=== PATIENT | male | born 1950 | race African-American/Black ===

== ENCOUNTER 2016-09-06 16:49 | Emergency (ER) | payer MEDICARE ==
[~2016-09-06] VITALS: Ht 180.3 cm; Wt 83.9 kg
[~2016-09-06 16:49] MED LIST: AMLO5TAB2 PO; ASPI-498 PO; CLON0.1T PO; DOCU250C3 PO; FLUO-125 PO; OMEP20TA44 PO; SENN8.6T15 PO; TAM04C PO; TOLN1POW EX
[2016-09-06 18:43] LABS: Basophils # (auto) 0 uL; Basophils % (auto) 0.6 % (0.0-2.0); Eosinophils # (auto) 0.1 uL; Eosinophils % (auto) 2.2 % (0.0-7.0); Hematocrit 49.9 % (41.0-53.0); Hemoglobin 16.7 g/dL (13.5-17.5); Lymphocytes % (auto) 33.9 % (10.0-50.0); Mean Corpuscular Hemoglobin 29.8 pg (28.0-32.0); Mean Corpuscular Hgb Conc. 33.5 g/dL (32.0-36.0); Mean Platelet Volume 11.4 fL (7.4-10.4); Monocytes # (auto) 0.5 uL; Monocytes % (auto) 7.6 % (0.0-12.0); Neutrophils # (auto) 3.3 uL; Neutrophils % (auto) 55.7 % (37.0-80.0); Platelet Count (auto) 233 10^3/uL (140-450); Red Cell Distribution Width 12.5 % (11.6-16.0); SUSPECT VIEW TRANSMISSION; White Blood Cell 5.9 10^3/uL (4.4-10.8)
[2016-09-06 19:41] LABS: Albumin 3.9 g/dL (3.4-5.0); BUN/Creatinine Ratio 9.8; Bilirubin, Total 0.5 mg/dL (0.2-1.0); Calcium 9.1 mg/dL (8.5-10.1); Potassium 3.9 mmol/L (3.5-5.1); Total Protein 8.1 g/dL (6.4-8.2)
[2016-09-06 20:37] LABS: Platelet Estimate Adequate; RBC Morphology Normal
[2016-09-06 20:38] LABS: Giant Platelets Few
[2016-09-07] MEDS ORDERED: diphenhdrAMINE HCL 50 MG/1 ML VL IV ONE (03:00)
[2016-09-07] MEDS ORDERED: SODIUM CHLORIDE 0.9% 1,000 ML IV SCH (03:00)
[2016-09-07 03:16] LABS: Basophils # (auto) 0.1 uL; Basophils % (auto) 1.1 % (0.0-2.0); Eosinophils # (auto) 0.1 uL; Eosinophils % (auto) 1.4 % (0.0-7.0); Hematocrit 50.9 % (41.0-53.0); Hemoglobin 16.6 g/dL (13.5-17.5); Lymphocytes # (auto) 1.9 uL; Lymphocytes % (auto) 26.6 % (10.0-50.0); Mean Corpuscular Hemoglobin 29.1 pg (28.0-32.0); Mean Corpuscular Hgb Conc. 32.6 g/dL (32.0-36.0); Mean Corpuscular Volume 89.1 fL (80.0-100.0); Mean Platelet Volume 10.9 fL (7.4-10.4); Monocytes # (auto) 0.6 uL; Monocytes % (auto) 7.8 % (0.0-12.0); Neutrophils # (auto) 4.5 uL; Neutrophils % (auto) 63.1 % (37.0-80.0); Platelet Count (auto) 231 10^3/uL (140-450); Red Cell Distribution Width 12.7 % (11.6-16.0); White Blood Cell 7.2 10^3/uL (4.4-10.8)
[2016-09-07 03:32] LABS: INR 1.01 (0.9-1.15); Partial Thromboplastin Time 31.3 sec (22.64-33.71); Prothrombin Time 10.9 sec (9.37-12.3)
[2016-09-07 03:51] LABS: Alkaline Phosphatase 78 U/L (45-117); Anion Gap 9 (5-15); Aspartate Aminotransferase 11 U/L (15-37); BUN/Creatinine Ratio 10.4; Bilirubin, Total 0.7 mg/dL (0.2-1.0); Blood Urea Nitrogen 17 mg/dL (7-18); Calcium 9.1 mg/dL (8.5-10.1); Carbon Dioxide 30 mmol/L (21-32); Chloride 104 mmol/L (98-107); GFR African American 54 mL/min; GFR Non-African American 45 mL/min; Glucose 170 mg/dL (74-106); Potassium 3.8 mmol/L (3.5-5.1); Sodium 143 mmol/L (136-145); Total Protein 8.2 g/dL (6.4-8.2)
[2016-09-07] MEDS ORDERED: LIDOCAINE 2% JELLY UROJET 10 ML TOP ONE (05:37)
[2016-09-07] MEDS ORDERED: LIDOCAINE 2% JELLY 11ml (GLYDO) UR ONE (06:15)
[2016-09-07] MEDS ORDERED: HYDROcodone-ACET 5/325MG TAB PO ONE (06:30)
[2016-09-07 06:44] VITALS: BP 151/99
[2016-09-07 06:54] LABS: Urine Bilirubin Negative (Negative); Urine Blood TRACE /uL (Negative); Urine Color Yellow (Yellow); Urine Glucose Normal (Normal); Urine Ketone Negative (Negative); Urine Nitrite Negative (Negative); Urine RBC 6 /hpf (0 - 3); Urine Squamous Epithelial Cell FEW /hpf (<5); Urine Urobilinogen Normal (Negative)
== END 2016-09-07 06:50 | disposition home or self-care (01) ==
LOC: ER 16:56
DX: N40.0 Benign prostatic hyperplasia without lower urinary tract symptoms (principal); N39.0 Urinary tract infection, site not specified; K56.41 Fecal impaction; F17.210 Nicotine dependence, cigarettes, uncomplicated; I48.91 Unspecified atrial fibrillation; I25.10 Atherosclerotic heart disease of native coronary artery without angina pectoris; E11.22 Type 2 diabetes mellitus with diabetic chronic kidney disease; I12.9 Hypertensive chronic kidney disease with stage 1 through stage 4 chronic kidney disease, or unspecified chronic kidney disease; N18.3 Chronic kidney disease, stage 3 (moderate); Z79.82 Long term (current) use of aspirin; Z79.899 Other long term (current) drug therapy
CPT/HCPCS: 36415; 51702; 74176; 80053; 81001; 84484; 85025; 85610; 85730; 96361; 96374; 99285; J1200; J7030

== ENCOUNTER 2016-09-07 17:35 | Observation (INO) | payer MEDICARE ==
[~2016-09-07] VITALS: Ht 180.3 cm; Wt 83.9 kg
[2016-09-08] MEDS ORDERED: HYDROmorphone HCL 2 MG/ML VL IM ONE (01:15)
[2016-09-08] MEDS ORDERED: ONDANSETRON HCL 4 MG/2 ML VIAL IM ONE (01:15)
[2016-09-08 01:26] VITALS: BP 145/68
== END 2016-09-08 02:09 | disposition home or self-care (01) | DRG 700 ==
LOC: EDBD 17:35 → ER 17:44 → OVERFLOW 23:01 → ER 09-08 02:09
PROVIDERS: ADMIT Emergency Medicine; ATTEND Emergency Medicine
DX: T83.011A Breakdown (mechanical) of indwelling urethral catheter, initial encounter (principal); N40.1 Benign prostatic hyperplasia with lower urinary tract symptoms; R33.8 Other retention of urine; M54.5 Low back pain; F17.210 Nicotine dependence, cigarettes, uncomplicated; Z90.49 Acquired absence of other specified parts of digestive tract; E11.9 Type 2 diabetes mellitus without complications; I10 Essential (primary) hypertension; I25.10 Atherosclerotic heart disease of native coronary artery without angina pectoris; Z86.73 Personal history of transient ischemic attack (TIA), and cerebral infarction without residual deficits; I48.91 Unspecified atrial fibrillation; Z80.51 Family history of malignant neoplasm of kidney
CPT/HCPCS: 96372; 99285; G0378; J1170; J2405

== ENCOUNTER 2017-10-15 23:09 | Emergency (ER) | payer MEDICARE ==
[~2017-10-15] VITALS: Ht 180.3 cm; Wt 85.7 kg
[~2017-10-15 23:09] MED LIST changes: +SENN1TAB14 PO; -SENN8.6T15 PO
[2017-10-16 00:23] LABS: Basophils # (auto) 0.1 uL; Eosinophils # (auto) 0.2 uL; Eosinophils % (auto) 2.7 % (0.0-7.0); Hematocrit 48.1 % (41.0-53.0); Hemoglobin 16.2 g/dL (13.5-17.5); Lymphocytes # (auto) 2.2 uL; Lymphocytes % (auto) 36.2 % (10.0-50.0); Mean Corpuscular Hgb Conc. 33.6 g/dL (32.0-36.0); Mean Corpuscular Volume 89.2 fL (80.0-100.0); Monocytes # (auto) 0.5 uL; Monocytes % (auto) 8.9 % (0.0-12.0); Neutrophils # (auto) 3.1 uL; Neutrophils % (auto) 51.2 % (37.0-80.0); Nucleated Red Blood Cells % 0.2 %; Platelet Count (auto) 223 10^3/uL (140-450); Red Blood Cells 5.39 10^6/uL (4.5-5.90); Red Cell Distribution Width 12.9 % (11.8-14.3)
[2017-10-16 00:30] LABS: Alanine Aminotransferase 27 U/L (16-61); Albumin 3.6 g/dL (3.4-5.0); Amylase 69 U/L (25-115); Anion Gap 9 (5-15); Aspartate Aminotransferase 13 U/L (15-37); BUN/Creatinine Ratio 14.1; Blood Urea Nitrogen 22 mg/dL (7-18); Calcium 8.9 mg/dL (8.5-10.1); Carbon Dioxide 26 mmol/L (21-32); Chloride 102 mmol/L (98-107); GFR African American 58 mL/min; GFR Non-African American 48 mL/min; Glucose 142 mg/dL (74-106); Lipase 69 U/L (73-393); Magnesium 2.1 mg/dL (1.6-2.6); Potassium 3.7 mmol/L (3.5-5.1); Sodium 137 mmol/L (136-145)
[2017-10-16 00:36] LABS: Alkaline Phosphatase 76 U/L (45-117); Bilirubin, Total 0.7 mg/dL (0.2-1.0); Total Protein 7.8 g/dL (6.4-8.2)
[2017-10-16 05:01] VITALS: BP 139/96
[2017-10-16] MEDS ORDERED: DOCUSATE SOD 100 MG CAP PO ONE (08:00)
== END 2017-10-16 08:55 | disposition home or self-care (01) ==
LOC: ER 23:17
DX: K59.00 Constipation, unspecified (principal); E11.9 Type 2 diabetes mellitus without complications; F17.210 Nicotine dependence, cigarettes, uncomplicated; I10 Essential (primary) hypertension; I25.10 Atherosclerotic heart disease of native coronary artery without angina pectoris; I48.91 Unspecified atrial fibrillation; N40.0 Benign prostatic hyperplasia without lower urinary tract symptoms; Z79.82 Long term (current) use of aspirin; Z86.73 Personal history of transient ischemic attack (TIA), and cerebral infarction without residual deficits; Z90.49 Acquired absence of other specified parts of digestive tract
CPT/HCPCS: 36415; 74176; 80053; 82150; 83690; 83735; 83880; 84484; 85025; 93005

== ENCOUNTER 2019-02-20 15:37 | Emergency (ER) | payer MEDICARE ==
[~2019-02-20] VITALS: Ht 180.3 cm; Wt 83.9 kg
[~2019-02-20 15:37] MED LIST changes: +AMLO5TAB15 PO; -AMLO5TAB2 PO
[2019-02-20] MEDS ORDERED: cefTRIAXone SOD 1,000 MG VL IM ONE (17:00)
[2019-02-20 17:02] LABS: Basophils # (auto) 0.1 uL; Basophils % (auto) 0.9 % (0.0-2.0); Eosinophils # (auto) 0.1 uL; Eosinophils % (auto) 1.2 % (0.0-7.0); Hematocrit 50.3 % (41.0-53.0); Hemoglobin 16.6 g/dL (13.5-17.5); Lymphocytes # (auto) 1.8 uL; Lymphocytes % (auto) 29.1 % (10.0-50.0); Mean Corpuscular Hemoglobin 29.5 pg (28.0-32.0); Mean Corpuscular Volume 89.3 fL (80.0-100.0); Monocytes # (auto) 0.6 uL; Monocytes % (auto) 9.9 % (0.0-12.0); Neutrophils # (auto) 3.6 uL; Neutrophils % (auto) 58.9 % (37.0-80.0); Platelet Count (auto) 279 10^3/uL (140-450); Red Blood Cells 5.63 10^6/uL (4.5-5.90); White Blood Cell 6.1 10^3/uL (4.4-10.8)
[2019-02-20 17:09] LABS: BUN/Creatinine Ratio 8.1; Calcium 9.8 mg/dL (8.5-10.1)
[2019-02-20 17:12] LABS: Bilirubin, Total 1.1 mg/dL (0.2-1.0); Total Protein 8.7 g/dL (6.4-8.2)
[2019-02-20] MEDS ORDERED: LIDOCAINE 2% (LOCAL ANESTH.) PF 5ml SDV ONE (17:55)
[2019-02-20] MEDS ORDERED: LIDOCAINE 2%HCL (LOCAL ANESTH.) INJ 20ML MDV ONE (17:58)
[2019-02-20 18:05] VITALS: BP 143/76
== END 2019-02-20 18:11 | disposition home or self-care (01) ==
LOC: ER 15:37
DX: N45.1 Epididymitis (principal); E11.22 Type 2 diabetes mellitus with diabetic chronic kidney disease; I12.9 Hypertensive chronic kidney disease with stage 1 through stage 4 chronic kidney disease, or unspecified chronic kidney disease; N18.9 Chronic kidney disease, unspecified; E78.5 Hyperlipidemia, unspecified; Z90.49 Acquired absence of other specified parts of digestive tract; Z79.2 Long term (current) use of antibiotics; Z79.82 Long term (current) use of aspirin; Z79.899 Other long term (current) drug therapy
CPT/HCPCS: 36415; 76870; 80053; 85025; 96372; 99284; J0696; J2001

== ENCOUNTER 2019-10-14 15:23 | Inpatient (IN) | payer MEDICARE ==
[~2019-10-14] VITALS: Ht 180.3 cm; Wt 88.6 kg
[2019-10-14] MEDS ORDERED: SODIUM CHLORIDE 0.9% 1,000 ML IV ONE ×2 (15:27)
[2019-10-14] MEDS ORDERED: PANTOPRAZOLE 40 MG/10 ML VIAL INJ IV ONE (15:30)
[2019-10-14 16:29] LABS: Basophils # (auto) 0 10 ^3/uL (0-0.2); Basophils % (auto) 0.6 % (0.0-2.0); Eosinophils # (auto) 0.3 10 ^3/uL (0-0.8); Eosinophils % (auto) 5.2 % (0.0-7.0); Hematocrit 48.3 % (41.0-53.0); Hemoglobin 15.9 g/dL (13.5-17.5); Lymphocytes # (auto) 1.9 10 ^3/uL (0.4-5.4); Lymphocytes % (auto) 30.7 % (10.0-50.0); Mean Corpuscular Hemoglobin 29.6 pg (28.0-32.0); Mean Corpuscular Hgb Conc. 32.9 g/dL (32.0-36.0); Mean Corpuscular Volume 90.2 fL (80.0-100.0); Monocytes # (auto) 0.6 10 ^3/uL (0-1.3); Monocytes % (auto) 9.3 % (0.0-12.0); Neutrophils # (auto) 3.3 10 ^3/uL (1.6-8.6); Neutrophils % (auto) 54.2 % (37.0-80.0); Nucleated Red Blood Cells % 0.2 %; Platelet Count (auto) 223 10^3/uL (140-450); Red Blood Cells 5.35 10^6/uL (4.5-5.90); Red Cell Distribution Width 13.1 % (11.8-14.3); White Blood Cell 6.1 10^3/uL (4.4-10.8)
[2019-10-14 16:30] LABS: Calcium 9.1 mg/dL (8.5-10.1); Chloride 109 mmol/L (98-107); Potassium 3.7 mmol/L (3.5-5.1); Sodium 142 mmol/L (136-145)
[2019-10-14 16:33] LABS: Albumin 3.4 g/dL (3.4-5.0); Anion Gap 5 (5-15); BUN/Creatinine Ratio 11.5; Blood Urea Nitrogen 17 mg/dL (7-18); Carbon Dioxide 28 mmol/L (21-32); GFR African American 61 mL/min; GFR Non-African American 50 mL/min; Glucose 166 mg/dL (74-106)
[2019-10-14 16:38] LABS: Alanine Aminotransferase 22 U/L (16-61); Alkaline Phosphatase 82 U/L (45-117); Aspartate Aminotransferase 12 U/L (15-37); Bilirubin, Total 0.4 mg/dL (0.2-1.0); Total Protein 7.8 g/dL (6.4-8.2)
[2019-10-14 16:39] LABS: INR 1.01 (0.9-1.15); Partial Thromboplastin Time 32.5 sec (23.64-32.05)
[2019-10-14] MEDS ORDERED: CLOTRIMAZOLE 1 % CREAM 15GM TOP ONE (16:45)
[2019-10-14] MEDS ORDERED: METOCLOPRAMIDE HCL 5MG/ml INJ 2ml VIAL IV PRN ×2 (17:15→21:15)
[2019-10-14] MEDS ORDERED: ALUM & MAG HYDROX-SIMETH LIQ(MAALOX) 30 ML PO PRN (17:15)
[2019-10-14] MEDS ORDERED: DOCUSATE SOD 100 MG CAP PO PRN (17:15)
[2019-10-14] MEDS ORDERED: NITROGLYCERIN 0.4 MG SL TAB SL PRN (17:15)
[2019-10-14] MEDS ORDERED: HYDROcodone-ACET 5/325MG TAB PO PRN (17:15)
[2019-10-14] MEDS ORDERED: MORPHINE SULF INJ 2 MG/ML SYRINGE 1ML IV PRN ×2 (17:15)
[2019-10-14] MEDS ORDERED: LORazepam 0.5 MG TAB PO PRN (17:15)
[2019-10-14] MEDS: SODIUM CHLORIDE 0.9% 1,000 ML IV SCH (17:39)
[2019-10-14] MEDS ORDERED: METOPROLOL SUCCINATE XL 50 MG TAB PO ONE (18:45)
[2019-10-14] MEDS ORDERED: VITAMINS A & D (TOPICAL) OINT 5GM TOP ONE (19:00)
[2019-10-14] MEDS ORDERED: VITAMINS A & D (TOPICAL) OINT 5GM TOP PRN (19:00)
[2019-10-14] MEDS: cefTRIAXone 1GM/50ML D5W 50 ML IV SCH (19:17)
[2019-10-14] MEDS: AZITHROMYCIN 500MG/ 250ML 250 ML IV SCH (19:18)
[2019-10-14 20:09] LABS: Cholesterol 188 mg/dL (< 200)
[2019-10-14 20:12] LABS: HDL Cholesterol 25 mg/dL (40-59); LDL Cholesterol 118 mg/dL (< 100); Triglycerides 276 mg/dL (< 150)
[2019-10-14 20:30] VITALS: BP 105/55
--- NOTE | 2019-10-14 20:30 | NUR ---
MS admit from ER SIS,OMAR admitted to tele/MS, no SBAR received. Patient oriented by DENI CAO, primary RN, to unit, room, bed, and unit policies regarding patient care and visiting hours. Patient weighed by bedscale and encouraged to call if he needs anything; pt agreed with plan. All questions and concerns addressed, patient verbalized understanding. Pt slow in processing questions and responding, freq. does not answer, or answers and later gives conflicting information. Bed in low position. HOB in semi-Sosa's position. Bedrales up x3. Nurse call light at pt's side. Coughing occ, but not mucus nor blood noted.
[2019-10-14 22:00] VITALS: BP 153/103
[2019-10-14] MEDS: CLOTRIMAZOLE W/ BETAMETH TOPICAL CR 15 GM TUBE TOP SCH (22:00)
--- NOTE | 2019-10-14 22:11 | NUR ---
This RN attempted to call Alejandra, patient's to return her call after she spoke with . Reached VM that stated person was unavailable to answer, check number and call again.
[2019-10-14] MEDS: ATORVASTATIN 20 MG TAB PO SCH (23:46)
[2019-10-14] MEDS: PANTOPRAZOLE 40 MG/10 ML VIAL INJ IV SCH (23:46)
[2019-10-15 05:00] VITALS: BP 140/91
[2019-10-15 06:06] LABS: Basophils # (auto) 0 10 ^3/uL (0-0.2); Basophils % (auto) 0.8 % (0.0-2.0); Eosinophils # (auto) 0.3 10 ^3/uL (0-0.8); Eosinophils % (auto) 4.6 % (0.0-7.0); Hematocrit 43.9 % (41.0-53.0); Hemoglobin 14.7 g/dL (13.5-17.5); Lymphocytes # (auto) 1.7 10 ^3/uL (0.4-5.4); Lymphocytes % (auto) 27.1 % (10.0-50.0); Mean Corpuscular Hgb Conc. 33.4 g/dL (32.0-36.0); Mean Corpuscular Volume 89.8 fL (80.0-100.0); Monocytes # (auto) 0.5 10 ^3/uL (0-1.3); Monocytes % (auto) 8.6 % (0.0-12.0); Neutrophils # (auto) 3.7 10 ^3/uL (1.6-8.6); Neutrophils % (auto) 58.9 % (37.0-80.0); Nucleated Red Blood Cells % 0.1 %; Platelet Count (auto) 196 10^3/uL (140-450); Red Blood Cells 4.89 10^6/uL (4.5-5.90); Red Cell Distribution Width 12.8 % (11.8-14.3); White Blood Cell 6.3 10^3/uL (4.4-10.8)
[2019-10-15 06:26] LABS: INR 1.09 (0.9-1.15); Partial Thromboplastin Time 33.5 sec (23.64-32.05)
[2019-10-15 06:28] LABS: Calcium 7.9 mg/dL (8.5-10.1); Potassium 3.6 mmol/L (3.5-5.1)
[2019-10-15 06:34] LABS: Albumin 2.8 g/dL (3.4-5.0); BUN/Creatinine Ratio 10.9; Bilirubin, Total 0.6 mg/dL (0.2-1.0); Magnesium 1.9 mg/dL (1.6-2.6); Phosphorus 2.8 mg/dL (2.5-4.90); Total Protein 6.3 g/dL (6.4-8.2)
--- NOTE | 2019-10-15 07:52 | NUR ---
OPENING SHIFT NOTE: PATIENT RESTING IN BED, ASLEEP BUT EASILY AWOKEN, A/OX4 RESPIRATIONS EVEN AND UNLABORED. PATIENT RE-POSITIONED FOR COMFORT. UPDATED ON PLAN OF CARE PATIENT VERBALIZED UNDERSTANDING. CALL LIGHT PLACED WITHIN REACH, BED ALARM ON AND IN PLACE WILL CONTINUE TO MONITOR.
[2019-10-15] MEDS: cefTRIAXone 1GM/50ML D5W 50 ML IV SCH (08:23)
[2019-10-15 09:00] VITALS: BP 149/91
[2019-10-15] MEDS: AZITHROMYCIN 500MG/ 250ML 250 ML IV SCH (09:25)
[2019-10-15] MEDS: PANTOPRAZOLE 40 MG/10 ML VIAL INJ IV SCH ×2 (09:25→21:27)
[2019-10-15] MEDS: METOPROLOL SUCCINATE XL 50 MG TAB PO SCH (09:26)
[2019-10-15] MEDS: SENNA 8.6 MG TAB PO SCH (09:26)
[2019-10-15] MEDS: TAMSULOSIN HYDROCHLORIDE 0.4 MG CAP PO SCH (09:26)
[2019-10-15] MEDS: FLUoxetine HCL 20 MG CAP PO SCH (09:26)
[2019-10-15] MEDS: amLODIPine BESYLATE 5 MG TAB PO SCH (09:26)
[2019-10-15] MEDS: CLOTRIMAZOLE W/ BETAMETH TOPICAL CR 15 GM TUBE TOP SCH ×2 (09:28→21:28)
[2019-10-15] MEDS ORDERED: TRIAMCINOLONE ACET 0.1% TOPICAL CREAM 15GM TOP SCH (10:00)
[2019-10-15] MEDS: SODIUM CHLORIDE 0.9% 1,000 ML IV SCH (14:00)
[2019-10-15 16:35] VITALS: BP 137/65
--- NOTE | 2019-10-15 19:10 | NUR ---
MD SHIREEN MAY.
--- NOTE | 2019-10-15 19:23 | NUR ---
CARE ENDORSED TO DANIELA GUERRA.
--- NOTE | 2019-10-15 19:30 | NUR ---
RECEIVED REPORT FROM DAY RN POC REVIEWED
--- NOTE | 2019-10-15 20:50 | NUR ---
SPOKE WITH PTS FAMILY AFTER VERIFIED PASSWORD, UPDATED FAMILY ON POC,
[2019-10-15] MEDS: ATORVASTATIN 20 MG TAB PO SCH (21:27)
[2019-10-15 22:00] VITALS: BP 155/99
--- NOTE | 2019-10-16 00:31 | NUR ---
RESTING COMFORTABLE AT THIS TIME CALL LIGHT WITHIN REACH, BED ALARM INTACT
--- NOTE | 2019-10-16 02:49 | NUR ---
PARTIAL BEDBATH AND LINEN CHANGE GIVEN, PT IS INCONTINENT OF URINE
[2019-10-16] MEDS: SODIUM CHLORIDE 0.9% 1,000 ML IV SCH ×2 (04:48→19:03)
[2019-10-16 05:00] VITALS: BP 155/100
--- NOTE | 2019-10-16 06:46 | NUR ---
awoke am care given resp even and unlabored on 2l, positioned with hob up,denies pain, call light within reach, bed alarm intact, will continue to monitor
--- NOTE | 2019-10-16 07:04 | NUR ---
report given to am nurse poc reviewed
--- NOTE | 2019-10-16 07:30 | NUR ---
Opening Shift Note Assumed care of patient, awake and alert. No S/S of distress/SOB or pain, currently on room air. Instructed on POC and to call for assist PRN, Call light within reach, bed alarm on, 2 side rails up and bed positioned low, IV patent benign to right FA, will continue to monitor for changes Q1hr and PRN.
[2019-10-16 08:00] VITALS: BP 152/87
[2019-10-16 09:00] VITALS: BP 152/87
[2019-10-16] MEDS ORDERED: SIMV10TA84 PO (09:17)
[2019-10-16] MEDS ORDERED: TRIA37.55 PO (09:17)
[2019-10-16] MEDS ORDERED: OXYB5TAB61 PO (09:18)
[2019-10-16] MEDS ORDERED: CHOL100055 PO (09:20)
[2019-10-16] MEDS: cefTRIAXone 1GM/50ML D5W 50 ML IV SCH (09:50)
[2019-10-16] MEDS: AZITHROMYCIN 500MG/ 250ML 250 ML IV SCH (09:51)
[2019-10-16] MEDS: PANTOPRAZOLE 40 MG/10 ML VIAL INJ IV SCH ×2 (09:51→22:22)
[2019-10-16] MEDS: TAMSULOSIN HYDROCHLORIDE 0.4 MG CAP PO SCH (09:52)
[2019-10-16] MEDS: SENNA 8.6 MG TAB PO SCH (09:52)
[2019-10-16] MEDS: amLODIPine BESYLATE 5 MG TAB PO SCH (09:53)
[2019-10-16] MEDS: FLUoxetine HCL 20 MG CAP PO SCH (09:53)
[2019-10-16] MEDS: METOPROLOL SUCCINATE XL 50 MG TAB PO SCH (09:53)
[2019-10-16] MEDS: CLOTRIMAZOLE W/ BETAMETH TOPICAL CR 15 GM TUBE TOP SCH ×2 (10:00→22:00)
--- NOTE | 2019-10-16 10:17 | NUR ---
GI DR QUIROZ AT BEDSIDE, DISCUSSING POC WITH PT, PER MD NO INTERVENTION AT THIS TIME, CONT CARE
[2019-10-16 12:07] LABS: Basophils # (auto) 0.1 10 ^3/uL (0-0.2); Basophils % (auto) 0.8 % (0.0-2.0); Eosinophils # (auto) 0.1 10 ^3/uL (0-0.8); Eosinophils % (auto) 2.4 % (0.0-7.0); Hematocrit 50.3 % (41.0-53.0); Hemoglobin 16.8 g/dL (13.5-17.5); Lymphocytes # (auto) 1.3 10 ^3/uL (0.4-5.4); Lymphocytes % (auto) 20.6 % (10.0-50.0); Mean Corpuscular Hemoglobin 29.7 pg (28.0-32.0); Mean Corpuscular Hgb Conc. 33.4 g/dL (32.0-36.0); Monocytes # (auto) 0.4 10 ^3/uL (0-1.3); Monocytes % (auto) 6.2 % (0.0-12.0); Neutrophils # (auto) 4.4 10 ^3/uL (1.6-8.6); Nucleated Red Blood Cells % 0.6 %; Platelet Count (auto) 237 10^3/uL (140-450); Red Blood Cells 5.66 10^6/uL (4.5-5.90); Red Cell Distribution Width 12.6 % (11.8-14.3); White Blood Cell 6.3 10^3/uL (4.4-10.8)
[2019-10-16 12:21] LABS: BUN/Creatinine Ratio 9.7; Calcium 8.5 mg/dL (8.5-10.1); Potassium 3.6 mmol/L (3.5-5.1)
[2019-10-16 13:00] VITALS: BP 158/69
--- NOTE | 2019-10-16 13:30 | NUR ---
LG BM ASSESSED SKIN, NOTED AN INCONTINENT LARGE BM, PT ASSISTED WITH TURNING, CLEANSED AND LINEN CHANGED, CONT CARE
--- NOTE | 2019-10-16 16:50 | NUR ---
CONFUSION PT STATED " I NEED TO LOOK FOR MY WALLET", REORIENTED PATIENT TO NAME, PLACE AND SITUATION, PT CONT TO PROCEED TO GET ANGRY, CALLED FAMILY AND SPOKE WITH SHAHRZAD AND JUANITA, SHAHRZAD () STATES " HE HAS NOT CARRIED HIS WALLET IN A LONG TIME, I HAVE IT", CALLED FAMILY AND HAD PATIENT SPEAK WITH AND SHE INFORMED HIM SHE HAS HIS ID, PT CONT TO BE INTERMITTENTLY CONFUSED, FALL PRECAUTIONS IN PLACE, NON-SLID SOCKS ON, 2 SIDE RAILS UP, BED ALARM ACTIVATED AND CALL LIGHT WITHIN REACH, PT ABLE TO DEMONSTRATE HOW TO CALL FOR ASSIST, CONT CARE
[2019-10-16 17:00] VITALS: BP 153/99
--- NOTE | 2019-10-16 19:30 | NUR ---
OPENING NOTE REPORT RECEIVED FROM DAY SHIFT RN PATIENT IS AWAKE, ALERT AND ORIENTED TO SELF AND YEAR. PATIENT UNABLE TO STATE CORRECT LOCATION OR SITUATION. PATIENT ON ROOM AIR, SPO2>95%. NO SOB OR DISTRESS NOTED. PATIENT ABLE TO TURN/REPOSITION SELF IN BED. SKIN ALL INTACT. IV NOTED TO RIGHT FOREARM RUNNING NS AT ORDERED RATE. POC DISCUSSED WITH PATIENT, ALL QUESTIONS ANSWERED. SITTER AT BEDSIDE FOR PATIENT SAFETY. CALL LIGHT WITHIN REACH.
[2019-10-16] MEDS ORDERED: TRIAMTERENE/HCTZ 37.5/25 MG CAP/TAB PO ONE (21:30)
[2019-10-16] MEDS ORDERED: amLODIPine BESYLATE 5 MG TAB PO ONE (21:30)
[2019-10-16 21:37] VITALS: BP 155/90
[2019-10-16] MEDS: ATORVASTATIN 20 MG TAB PO SCH (22:22)
--- NOTE | 2019-10-16 22:30 | NUR ---
IV insertion IV access obtained, via clean sterile technique by inserting 22 gauge catheter at LEFT FOREARM after 1 attempt(s). IV secured properly. No trauma to site. Patient tolerated well.
--- NOTE | 2019-10-16 22:33 | NUR ---
LOTRISONE TOPICAL OINTMENT NOT IN PATIENT CASSETTE NOR BY BEDSIDE CALLED PHARMACY. NO ANSWER UNABLE TO APPLY OINTMENT
--- NOTE | 2019-10-16 23:08 | NUR ---
REPORT ENDORSED TO RN CISCO TO ASSUME CARE OF PATIENT
[2019-10-17 05:00] VITALS: BP 159/98
[2019-10-17 08:02] VITALS: BP 140/89
[2019-10-17 09:29] VITALS: BP 140/89
[2019-10-17] MEDS: cefTRIAXone 1GM/50ML D5W 50 ML IV SCH (09:35)
[2019-10-17] MEDS: METOPROLOL SUCCINATE XL 50 MG TAB PO SCH (09:35)
[2019-10-17] MEDS: FLUoxetine HCL 20 MG CAP PO SCH (09:35)
[2019-10-17] MEDS: SENNA 8.6 MG TAB PO SCH (09:36)
[2019-10-17] MEDS: TAMSULOSIN HYDROCHLORIDE 0.4 MG CAP PO SCH (09:36)
[2019-10-17] MEDS: PANTOPRAZOLE 40 MG/10 ML VIAL INJ IV SCH (09:37)
[2019-10-17] MEDS ORDERED: TRIAMTERENE/HCTZ 37.5/25 MG CAP/TAB PO SCH (10:00)
[2019-10-17] MEDS ORDERED: amLODIPine BESYLATE 5 MG TAB PO SCH (10:00)
[2019-10-17] MEDS: CLOTRIMAZOLE W/ BETAMETH TOPICAL CR 15 GM TUBE TOP SCH (10:20)
[2019-10-17] MEDS: AZITHROMYCIN 500MG/ 250ML 250 ML IV SCH (10:20)
[2019-10-17] MEDS: SODIUM CHLORIDE 0.9% 1,000 ML IV SCH (10:21)
--- NOTE | 2019-10-17 11:10 | NUR ---
MD Maciel may at bedside Discussed discharge planning with pt, pt verbalized understanding.
[2019-10-17 13:00] VITALS: BP 142/75
[2019-10-17] MEDS ORDERED: CLOTCRE3 TOP (13:15)
[2019-10-17 15:05] VITALS: BP 142/75
--- NOTE | 2019-10-17 15:22 | NUR ---
Spoke with patient's Alejandra Provided Alejandra with discharge instructions and instructed Alejandra and follow up information for PCP and silverware supervisor. Alejandra is aware of teaching for discharge and verbalized understanding.
--- NOTE | 2019-10-17 16:01 | NUR ---
Discharge instructions given as ordered. Encourage to follow up with PMD as instructed, patient's Alejandra given instructions for discharge. All questions and concerns addressed. Patient verbalized understanding. IV removed with catheter intact, pressure dressing applied. Telemetry unit returned to ICU. Patient taken to vehicle via wheelchair with all personal belongings, accompanied by staff. No distress noted at time of departure.
== END 2019-10-17 16:01 | disposition home or self-care (01) | DRG 204 ==
LOC: ER 15:23 → EDBD 15:23 → TELE 15:24 → TELE-WESTW 20:30
PROVIDERS: ADMIT Hospitalist; ATTEND Internal Medicine Nephrology
DX: R04.2 Hemoptysis (principal); K92.2 Gastrointestinal hemorrhage, unspecified; M31.30 Wegener's granulomatosis without renal involvement; I69.354 Hemiplegia and hemiparesis following cerebral infarction affecting left non-dominant side; J98.11 Atelectasis; J04.0 Acute laryngitis; J20.9 Acute bronchitis, unspecified; I77.6 Arteritis, unspecified; I48.91 Unspecified atrial fibrillation; K59.04 Chronic idiopathic constipation; Z85.89 Personal history of malignant neoplasm of other organs and systems; N18.9 Chronic kidney disease, unspecified; I12.9 Hypertensive chronic kidney disease with stage 1 through stage 4 chronic kidney disease, or unspecified chronic kidney disease; E11.22 Type 2 diabetes mellitus with diabetic chronic kidney disease; I25.10 Atherosclerotic heart disease of native coronary artery without angina pectoris; E78.5 Hyperlipidemia, unspecified; F17.210 Nicotine dependence, cigarettes, uncomplicated; F32.9 Major depressive disorder, single episode, unspecified; J43.9 Emphysema, unspecified; N40.0 Benign prostatic hyperplasia without lower urinary tract symptoms; Z79.899 Other long term (current) drug therapy; Z80.9 Family history of malignant neoplasm, unspecified; Z98.2 Presence of cerebrospinal fluid drainage device
CPT/HCPCS: 36415; 71045; 71250; 80048; 80053; 80061; 83036; 83735; 84100; 84484; 85025; 85610; 85730; C9113; G0378; J0696

== ENCOUNTER 2020-11-17 17:56 | Inpatient (IN) | payer MEDICARE ==
[~2020-11-17] VITALS: Ht 180.3 cm; Wt 82.0 kg
[~2020-11-17 17:56] MED LIST changes: -AMLO5TAB15 PO; +CHOL100055 PO; -CLON0.1T PO; -DOCU250C3 PO; +DOCU250C4 PO; -FLUO-125 PO; -OMEP20TA44 PO; +OXYB5TAB61 PO; +SIMV10TA84 PO; -TOLN1POW EX; +TRIA37.55 PO
[2020-11-17] MEDS ORDERED: SODIUM CHLORIDE 0.9% 500 ML IV ONE (19:00)
[2020-11-17 19:44] LABS: Basophils # (auto) 0.1 10 ^3/uL (0-0.2); Eosinophils # (auto) 0.1 10 ^3/uL (0-0.8); Eosinophils % (auto) 1.3 % (0.0-7.0); Hematocrit 48.1 % (41.0-53.0); Hemoglobin 16.4 g/dL (13.5-17.5); Lymphocytes # (auto) 2.5 10 ^3/uL (0.4-5.4); Lymphocytes % (auto) 30.6 % (10.0-50.0); Mean Corpuscular Hemoglobin 29.8 pg (28.0-32.0); Mean Corpuscular Volume 87.4 fL (80.0-100.0); Monocytes # (auto) 0.7 10 ^3/uL (0-1.3); Monocytes % (auto) 8.4 % (0.0-12.0); Neutrophils # (auto) 4.7 10 ^3/uL (1.6-8.6); Neutrophils % (auto) 58.7 % (37.0-80.0); Nucleated Red Blood Cells % 0.9 %; Red Cell Distribution Width 12.9 % (11.8-14.3); White Blood Cell 8.1 10^3/uL (4.4-10.8)
[2020-11-17 19:59] LABS: Albumin 4.2 g/dL (3.4-5.0); Anion Gap 9 (5-15); Blood Urea Nitrogen 28 mg/dL (7-18); Calcium 9.6 mg/dL (8.5-10.1); Carbon Dioxide 25 mmol/L (21-32); Chloride 105 mmol/L (98-107); Glucose 74 mg/dL (74-106); Potassium 3.4 mmol/L (3.5-5.1); Sodium 139 mmol/L (136-145)
[2020-11-17 20:01] LABS: Lactic Acid w/Reflex 2.3 mmol/L (0.4-2.0)
[2020-11-17 20:04] LABS: Alanine Aminotransferase 21 U/L (16-61); Alkaline Phosphatase 84 U/L (45-117); Aspartate Aminotransferase 17 U/L (15-37); BUN/Creatinine Ratio 17.1; Bilirubin, Total 1.2 mg/dL (0.2-1.0); GFR African American 54 mL/min; GFR Non-African American 44 mL/min; Total Protein 8.4 g/dL (6.4-8.2)
[2020-11-17 23:43] LABS: Urine Bacteria MOD /hpf (None Seen); Urine Blood 1+ /uL (Negative); Urine Specific Gravity 1.011 (1.001-1.035); Urine WBC 46 /hpf (0 - 3); Urine WBC Clumps PRESENT /hpf (None Seen)
[2020-11-18] MEDS ORDERED: cefTRIAXone 1GM/50ML D5W 50 ML IV ONE (02:45)
[2020-11-18] MEDS ORDERED: MORPHINE SULFATE INJECTION 2 MG/ML SYRG IV PRN (09:15)
[2020-11-18] MEDS ORDERED: NITROGLYCERIN 0.4 MG SL TAB SL PRN (09:15)
[2020-11-18] MEDS ORDERED: DEXTROSE (50%) 50ML SYRG IV PRN (10:45)
[2020-11-18] MEDS: InsuLIN REG 1unit/0.01ml Soln (100units/ml) SC SCH ×3 (11:30→21:44)
[2020-11-18] MEDS: FAMOTIDINE 20 MG TAB PO SCH (12:27)
[2020-11-18] MEDS: SODIUM CHLORIDE 0.9% 1,000 ML IV SCH ×2 (12:27→20:45)
[2020-11-18] MEDS: ACCU-CHEK COMFORT CURVE STRIP VI SCH ×3 (12:28→21:45)
[2020-11-18 14:43] LABS: Basophils # (auto) 0 10 ^3/uL (0-0.2); Basophils % (auto) 0.6 % (0.0-2.0); Eosinophils # (auto) 0.1 10 ^3/uL (0-0.8); Eosinophils % (auto) 0.8 % (0.0-7.0); Hematocrit 44.6 % (41.0-53.0); Hemoglobin 15.5 g/dL (13.5-17.5); Lymphocytes # (auto) 1.5 10 ^3/uL (0.4-5.4); Lymphocytes % (auto) 18.4 % (10.0-50.0); Mean Corpuscular Hemoglobin 30.4 pg (28.0-32.0); Mean Corpuscular Hgb Conc. 34.9 g/dL (32.0-36.0); Mean Corpuscular Volume 87.2 fL (80.0-100.0); Monocytes # (auto) 0.6 10 ^3/uL (0-1.3); Monocytes % (auto) 7.4 % (0.0-12.0); Neutrophils # (auto) 6.1 10 ^3/uL (1.6-8.6); Neutrophils % (auto) 72.8 % (37.0-80.0); Nucleated Red Blood Cells % 0.4 %; Red Blood Cells 5.11 10^6/uL (4.5-5.90); Red Cell Distribution Width 12.9 % (11.8-14.3); White Blood Cell 8.4 10^3/uL (4.4-10.8)
[2020-11-18 14:53] LABS: Albumin 3.9 g/dL (3.4-5.0); Calcium 9.4 mg/dL (8.5-10.1); Potassium 3.8 mmol/L (3.5-5.1)
[2020-11-18 14:58] LABS: BUN/Creatinine Ratio 17.2; Bilirubin, Total 1.3 mg/dL (0.2-1.0); Total Protein 7.9 g/dL (6.4-8.2)
[2020-11-18 17:00] VITALS: BP 177/106
[2020-11-18] MEDS ORDERED: amLODIPine BESYLATE 5 MG TAB PO ONE (17:45)
[2020-11-18] MEDS ORDERED: LABETALOL HCL 5 MG/ML 4ML SYRINGE IV PRN (17:45)
[2020-11-18] MEDS: TAMSULOSIN HYDROCHLORIDE 0.4 MG CAP PO SCH (18:20)
[2020-11-18] MEDS: OXYBUTYNIN CHL 5 MG TAB PO SCH (21:43)
[2020-11-18] MEDS: PRAVASTATIN SODIUM 20 MG TAB PO SCH (21:45)
[2020-11-18] MEDS: SENNA 8.6 MG TAB PO SCH (21:45)
[2020-11-18] MEDS: DOCUSATE CALCIUM 250 MG PO SCH (21:45)
[2020-11-18 21:56] VITALS: BP 160/99
[2020-11-19] MEDS: SODIUM CHLORIDE 0.9% 1,000 ML IV SCH ×2 (06:22→16:37)
[2020-11-19] MEDS: ACCU-CHEK COMFORT CURVE STRIP VI SCH ×4 (06:51→21:46)
[2020-11-19] MEDS: InsuLIN REG 1unit/0.01ml Soln (100units/ml) SC SCH ×4 (06:51→21:45)
[2020-11-19 09:00] VITALS: BP 126/69
[2020-11-19] MEDS ORDERED: cefTRIAXone 1GM/50ML D5W 50 ML IV SCH (09:00)
[2020-11-19] MEDS: ASPirin-EC 81 mg tab PO SCH (09:56)
[2020-11-19] MEDS: OXYBUTYNIN CHL 5 MG TAB PO SCH ×2 (09:57→21:19)
[2020-11-19] MEDS: SENNA 8.6 MG TAB PO SCH ×2 (09:57→21:19)
[2020-11-19] MEDS: DOCUSATE CALCIUM 250 MG PO SCH ×2 (09:57→21:24)
[2020-11-19] MEDS: amLODIPine BESYLATE 5 MG TAB PO SCH (09:58)
[2020-11-19] MEDS ORDERED: ASPirin 81 mg TAB PO SCH (10:00)
[2020-11-19] MEDS: cefTRIAXone 1GM/50ML D5W 50 ML IV SCH ×2 (10:09→21:19)
[2020-11-19] MEDS: FAMOTIDINE 20 MG TAB PO SCH (11:21)
[2020-11-19 13:00] VITALS: BP 132/72
[2020-11-19 17:00] VITALS: BP 119/82
[2020-11-19] MEDS: TAMSULOSIN HYDROCHLORIDE 0.4 MG CAP PO SCH (18:02)
[2020-11-19 21:05] VITALS: BP 124/72
[2020-11-19] MEDS: PRAVASTATIN SODIUM 20 MG TAB PO SCH (21:19)
[2020-11-20] MEDS: SODIUM CHLORIDE 0.9% 1,000 ML IV SCH ×3 (04:49→23:36)
[2020-11-20 05:20] VITALS: BP 137/86
[2020-11-20] MEDS: InsuLIN REG 1unit/0.01ml Soln (100units/ml) SC SCH ×4 (06:37→22:33)
[2020-11-20] MEDS: ACCU-CHEK COMFORT CURVE STRIP VI SCH ×4 (06:39→22:35)
[2020-11-20 09:00] VITALS: BP 102/56
[2020-11-20] MEDS: DOCUSATE CALCIUM 250 MG PO SCH ×2 (09:47→22:00)
[2020-11-20] MEDS: cefTRIAXone 1GM/50ML D5W 50 ML IV SCH ×2 (09:47→22:11)
[2020-11-20] MEDS: amLODIPine BESYLATE 5 MG TAB PO SCH (09:48)
[2020-11-20] MEDS: ASPirin-EC 81 mg tab PO SCH (10:07)
[2020-11-20] MEDS: OXYBUTYNIN CHL 5 MG TAB PO SCH ×2 (10:07→22:11)
[2020-11-20] MEDS: SENNA 8.6 MG TAB PO SCH ×2 (10:08→22:11)
[2020-11-20] MEDS: FAMOTIDINE 20 MG TAB PO SCH (10:08)
[2020-11-20 13:10] VITALS: BP 112/66
[2020-11-20] MEDS: TAMSULOSIN HYDROCHLORIDE 0.4 MG CAP PO SCH (16:51)
[2020-11-20 17:00] VITALS: BP 127/88
[2020-11-20 22:00] VITALS: BP 152/88
[2020-11-20] MEDS: PRAVASTATIN SODIUM 20 MG TAB PO SCH (22:11)
[2020-11-21 05:00] VITALS: BP 137/81
[2020-11-21] MEDS: InsuLIN REG 1unit/0.01ml Soln (100units/ml) SC SCH ×2 (06:21→11:30)
[2020-11-21] MEDS: ACCU-CHEK COMFORT CURVE STRIP VI SCH ×2 (06:23→11:37)
[2020-11-21 08:14] LABS: Basophils # (auto) 0 10 ^3/uL (0-0.2); Basophils % (auto) 0.7 % (0.0-2.0); Eosinophils # (auto) 0.2 10 ^3/uL (0-0.8); Eosinophils % (auto) 2.7 % (0.0-7.0); Hematocrit 36.3 % (41.0-53.0); Hemoglobin 12.5 g/dL (13.5-17.5); Lymphocytes # (auto) 1.3 10 ^3/uL (0.4-5.4); Lymphocytes % (auto) 19.4 % (10.0-50.0); Mean Corpuscular Hgb Conc. 34.3 g/dL (32.0-36.0); Mean Corpuscular Volume 87.5 fL (80.0-100.0); Monocytes # (auto) 0.6 10 ^3/uL (0-1.3); Monocytes % (auto) 8.9 % (0.0-12.0); Neutrophils # (auto) 4.6 10 ^3/uL (1.6-8.6); Neutrophils % (auto) 68.3 % (37.0-80.0); Nucleated Red Blood Cells % 0.3 %; Red Blood Cells 4.15 10^6/uL (4.5-5.90); Red Cell Distribution Width 12.6 % (11.8-14.3); White Blood Cell 6.7 10^3/uL (4.4-10.8)
[2020-11-21 08:31] LABS: Calcium 8.3 mg/dL (8.5-10.1); Potassium 3.5 mmol/L (3.5-5.1)
[2020-11-21 08:39] LABS: Bilirubin, Total 0.6 mg/dL (0.2-1.0); Total Protein 6.5 g/dL (6.4-8.2)
[2020-11-21 09:00] VITALS: BP 145/94
[2020-11-21] MEDS ORDERED: cefTRIAXone 1GM/50ML D5W 50 ML IV SCH (09:00)
[2020-11-21] MEDS: SODIUM CHLORIDE 0.9% 1,000 ML IV SCH (09:30)
[2020-11-21] MEDS: OXYBUTYNIN CHL 5 MG TAB PO SCH (09:31)
[2020-11-21] MEDS: cefTRIAXone 1GM/50ML D5W 50 ML IV SCH (09:31)
[2020-11-21] MEDS: DOCUSATE CALCIUM 250 MG PO SCH (09:31)
[2020-11-21] MEDS: amLODIPine BESYLATE 5 MG TAB PO SCH (09:31)
[2020-11-21] MEDS: ASPirin-EC 81 mg tab PO SCH (09:31)
[2020-11-21] MEDS: SENNA 8.6 MG TAB PO SCH (09:32)
[2020-11-21] MEDS: FAMOTIDINE 20 MG TAB PO SCH (09:32)
[2020-11-21 13:00] VITALS: BP 138/88
[2020-11-21] MEDS ORDERED: CIPR500T4 PO (14:33)
== END 2020-11-21 16:50 | disposition home or self-care (01) | DRG 871 ==
LOC: EDUNIT# 17:56 → EDBD 17:56 → ER 18:06 → TELE-WESTW 11-18 09:11 → ER 11-18 16:10
PROVIDERS: ADMIT Internal Medicine; ATTEND Internal Medicine Nephrology
DX: A41.59 Other Gram-negative sepsis (principal); G93.41 Metabolic encephalopathy; N17.9 Acute kidney failure, unspecified; N39.0 Urinary tract infection, site not specified; E86.0 Dehydration; E11.22 Type 2 diabetes mellitus with diabetic chronic kidney disease; E78.5 Hyperlipidemia, unspecified; F17.210 Nicotine dependence, cigarettes, uncomplicated; R31.9 Hematuria, unspecified; I48.0 Paroxysmal atrial fibrillation; Z20.822 Contact with and (suspected) exposure to COVID-19; I12.9 Hypertensive chronic kidney disease with stage 1 through stage 4 chronic kidney disease, or unspecified chronic kidney disease; I25.10 Atherosclerotic heart disease of native coronary artery without angina pectoris; N18.2 Chronic kidney disease, stage 2 (mild); Z90.49 Acquired absence of other specified parts of digestive tract; Z80.9 Family history of malignant neoplasm, unspecified; Z98.2 Presence of cerebrospinal fluid drainage device; Z86.73 Personal history of transient ischemic attack (TIA), and cerebral infarction without residual deficits
CPT/HCPCS: 36415; 70450; 71045; 76775; 80053; 81001; 82962; 83036; 83605; 84443; 84484; 85025; 87086; 87088; 87186; 87426; 93005; G0378; J0696; J1815; J3490

== ENCOUNTER 2021-11-30 14:56 | Emergency (ER) | payer OTHER, MEDICARE ==
[~2021-11-30] VITALS: Ht 180.3 cm; Wt 72.6 kg
[~2021-11-30 14:56] MED LIST changes: +CIPR500T4 PO
[2021-11-30 16:23] LABS: Basophils # (auto) 0.1 10 ^3/uL (0-0.2); Basophils % (auto) 1.1 % (0.0-2.0); Eosinophils # (auto) 0.1 10 ^3/uL (0-0.8); Eosinophils % (auto) 1.4 % (0.0-7.0); Hematocrit 40.7 % (41.0-53.0); Hemoglobin 13.2 g/dL (13.5-17.5); Lymphocytes # (auto) 1.3 10 ^3/uL (0.4-5.4); Lymphocytes % (auto) 25.5 % (10.0-50.0); Mean Corpuscular Hgb Conc. 32.4 g/dL (32.0-36.0); Mean Corpuscular Volume 89.6 fL (80.0-100.0); Monocytes # (auto) 0.4 10 ^3/uL (0-1.3); Monocytes % (auto) 7.4 % (0.0-12.0); Neutrophils # (auto) 3.4 10 ^3/uL (1.6-8.6); Neutrophils % (auto) 64.6 % (37.0-80.0); Nucleated Red Blood Cells % 0.1 %; Red Blood Cells 4.54 10^6/uL (4.5-5.90); Red Cell Distribution Width 12.5 % (11.8-14.3); White Blood Cell 5.3 10^3/uL (4.4-10.8)
[2021-11-30 16:33] LABS: Albumin 3.8 g/dL (3.4-5.0); Calcium 9.3 mg/dL (8.5-10.1); Magnesium 2.2 mg/dL (1.6-2.6); Potassium 3.9 mmol/L (3.5-5.1)
[2021-11-30 16:38] LABS: BUN/Creatinine Ratio 17.6; Bilirubin, Total 0.8 mg/dL (0.2-1.0); Total Protein 7.6 g/dL (6.4-8.2)
[2021-11-30] MEDS ORDERED: SODIUM CHLORIDE 0.9% 1,000 ML IVB ONE (21:30)
[2021-11-30] MEDS ORDERED: SODIUM CHLORIDE 0.9% 1,000 ML IV ONE (21:30)
[2021-12-01 10:11] VITALS: BP 152/75
== END 2021-12-01 10:43 | disposition short-term general hospital (02) ==
LOC: EDSEX 14:56 → ER 14:56 → EDBD 14:56 → ER 12-01 10:39
DX: T85.01XA Breakdown (mechanical) of ventricular intracranial (communicating) shunt, initial encounter (principal); R53.83 Other fatigue; I12.9 Hypertensive chronic kidney disease with stage 1 through stage 4 chronic kidney disease, or unspecified chronic kidney disease; E11.22 Type 2 diabetes mellitus with diabetic chronic kidney disease; N18.9 Chronic kidney disease, unspecified; E78.5 Hyperlipidemia, unspecified; Z90.49 Acquired absence of other specified parts of digestive tract; Z86.73 Personal history of transient ischemic attack (TIA), and cerebral infarction without residual deficits; Z20.822 Contact with and (suspected) exposure to COVID-19
CPT/HCPCS: 36415; 70450; 71045; 80053; 82962; 83735; 84443; 84484; 85025; 87426; 93005; 96360; 96361; 99285; J7030

== ENCOUNTER 2022-12-03 17:35 | Emergency (ER) | payer OTHER ==
[~2022-12-03] VITALS: Ht 185.4 cm; Wt 88.6 kg
[~2022-12-03 17:35] MED LIST changes: +DOCU250C12 PO; -DOCU250C4 PO; +OXYB5TAB10 PO; -OXYB5TAB61 PO; +SIMV10TA20 PO; -SIMV10TA84 PO; -TAM04C PO; +TAMS-35 PO; -TRIA37.55 PO; +TRIA37.586 PO
[2022-12-03 18:43] LABS: Basophils # (auto) 0.1 10 ^3/uL (0-0.2); Basophils % (auto) 1.3 % (0.0-2.0); Eosinophils # (auto) 0.1 10 ^3/uL (0-0.8); Eosinophils % (auto) 1.9 % (0.0-7.0); Hematocrit 43.7 % (41.0-53.0); Hemoglobin 14.3 g/dL (13.5-17.5); Lymphocytes % (auto) 28.2 % (10.0-50.0); Mean Corpuscular Hemoglobin 29.3 pg (28.0-32.0); Mean Corpuscular Hgb Conc. 32.7 g/dL (32.0-36.0); Mean Corpuscular Volume 89.5 fL (80.0-100.0); Monocytes # (auto) 0.5 10 ^3/uL (0-1.3); Monocytes % (auto) 7.8 % (0.0-12.0); Neutrophils # (auto) 4.2 10 ^3/uL (1.6-8.6); Neutrophils % (auto) 60.8 % (37.0-80.0); Nucleated Red Blood Cells % 0.1 %; Red Blood Cells 4.88 10^6/uL (4.5-5.90); Red Cell Distribution Width 12.6 % (11.8-14.3)
[2022-12-03 18:51] LABS: Albumin 3.7 g/dL (3.4-5.0); BUN/Creatinine Ratio 12.1 (10.0-20.0); Calcium 8.9 mg/dL (8.5-10.1); Potassium 4.1 mmol/L (3.5-5.1)
[2022-12-03 18:54] LABS: Bilirubin, Total 0.5 mg/dL (0.2-1.0); Total Protein 8.1 g/dL (6.4-8.2)
[2022-12-03] MEDS ORDERED: IOHEXOL 350 MG/ML 100ML IJ ONE (20:15)
[2022-12-03] MEDS ORDERED: LABETALOL HCL 5 MG/ML 4ML SYRINGE IV ONE (21:30)
[2022-12-03 23:15] VITALS: BP 179/98
[2022-12-04] MEDS ORDERED: ASPirin 81 mg TAB PO SCH (10:00)
[2022-12-04] MEDS ORDERED: ATORVASTATIN 20 MG TAB PO SCH (10:00)
== END 2022-12-03 23:33 | disposition short-term general hospital (02) ==
LOC: EDBD 17:35 → ER 17:35
DX: C79.31 Secondary malignant neoplasm of brain (principal); K59.00 Constipation, unspecified; F17.210 Nicotine dependence, cigarettes, uncomplicated; E11.22 Type 2 diabetes mellitus with diabetic chronic kidney disease; I12.9 Hypertensive chronic kidney disease with stage 1 through stage 4 chronic kidney disease, or unspecified chronic kidney disease; N18.9 Chronic kidney disease, unspecified; E78.5 Hyperlipidemia, unspecified; Z20.822 Contact with and (suspected) exposure to COVID-19; Z90.49 Acquired absence of other specified parts of digestive tract; Z88.0 Allergy status to penicillin; Z98.2 Presence of cerebrospinal fluid drainage device
CPT/HCPCS: 36415; 70450; 70496; 74176; 80053; 80320; 83605; 83690; 84484; 85025; 87426; 93005; 96374; 99285; J3490; Q9967

== ENCOUNTER 2023-03-06 15:44 | Emergency (ER) | payer OTHER ==
[~2023-03-06] VITALS: Ht 185.4 cm; Wt 100.0 kg
[2023-03-06 16:10] VITALS: PULSE 72; RESP 20; O2SAT 97
[2023-03-06 17:06] LABS: Urine Bacteria FEW /hpf (None Seen); Urine Blood Negative /uL (Negative); Urine Clarity Clear (Clear); Urine Color Colorless (Yellow); Urine Protein, UAD 2+ (Negative); Urine Specific Gravity 1.016 (1.001-1.035); Urine Urobilinogen Normal (Negative); Urine WBC 38 /hpf (0 - 3); Urine pH 5.5 (5.0-8.0)
[2023-03-06 17:49] LABS: Alanine Aminotransferase 11 U/L (7-40); Albumin 3.8 g/dL (3.2-4.8); Alkaline Phosphatase 62 U/L (46-116); Anion Gap 5 (5-15); Aspartate Aminotransferase < 8 U/L (13-40); BUN/Creatinine Ratio 8.8 (10.0-20.0); Bilirubin, Total 0.4 mg/dL (0.2-1.0); Blood Urea Nitrogen 14 mg/dL (9-23); Calcium 9.2 mg/dL (8.7-10.4); Carbon Dioxide 28 mmol/L (20-30); Chloride 109 mmol/L (98-107); Glucose 84 mg/dL (74-106); Lipase 39 U/L (12-53); Potassium 3.8 mmol/L (3.5-5.1); Sodium 142 mmol/L (136-145)
[2023-03-06 17:50] LABS: Total Protein 6.8 g/dL (5.7-8.2)
[2023-03-06 18:00] VITALS: TEMP 97.9
[2023-03-06 18:21] LABS: Basophils # (auto) 0 10 ^3/uL (0-0.2); Eosinophils # (auto) 0.1 10 ^3/uL (0-0.8); Eosinophils % (auto) 1.5 % (0.0-7.0); Hematocrit 36.5 % (41.0-53.0); Hemoglobin 12.2 g/dL (13.5-17.5); Lymphocytes # (auto) 1.7 10 ^3/uL (0.4-5.4); Lymphocytes % (auto) 36.6 % (10.0-50.0); Mean Corpuscular Hemoglobin 29.6 pg (28.0-32.0); Mean Corpuscular Hgb Conc. 33.4 g/dL (32.0-36.0); Mean Corpuscular Volume 88.5 fL (80.0-100.0); Monocytes # (auto) 0.4 10 ^3/uL (0-1.3); Monocytes % (auto) 8.7 % (0.0-12.0); Neutrophils # (auto) 2.5 10 ^3/uL (1.6-8.6); Neutrophils % (auto) 52.2 % (37.0-80.0); Nucleated Red Blood Cells % 0.1 %; Red Blood Cells 4.12 10^6/uL (4.5-5.90); Red Cell Distribution Width 12.8 % (11.8-14.3); White Blood Cell 4.7 10^3/uL (4.4-10.8)
[2023-03-06 19:25] VITALS: PULSE 82; RESP 18; O2SAT 98
[2023-03-06] MEDS ORDERED: CIPR-173 PO (21:56)
[2023-03-06] MEDS ORDERED: BISA-13 PO (21:56)
[2023-03-06] MEDS ORDERED: CIPR500T4 PO (21:57)
[2023-03-06] MEDS ORDERED: LACTULOSE 20Gm/30ML SOLN PO ONE (22:30)
[2023-03-06] MEDS ORDERED: LACT10SO3 PO (22:32)
[2023-03-06 22:40] VITALS: BP 167/86; PULSE 82; RESP 18; O2SAT 93
== END 2023-03-06 22:45 | disposition home or self-care (01) ==
LOC: EDBD 15:44 → ER 15:44
DX: N39.0 Urinary tract infection, site not specified (principal); K59.00 Constipation, unspecified; Z88.0 Allergy status to penicillin; Z79.82 Long term (current) use of aspirin; Z79.2 Long term (current) use of antibiotics; Z79.899 Other long term (current) drug therapy
CPT/HCPCS: 36415; 74176; 80053; 81001; 83690; 85025; 93005